=== PATIENT | male | born 1980 | race Caucasian/White ===

== ENCOUNTER 2016-10-14 21:20 | Emergency (ER) | payer BC ==
[2016-10-14 21:53] VITALS: TEMP 98.6; BMI 25.2
[2016-10-14] MEDS ORDERED: ONDANSETRON 4 MG/2 ML VIAL IVPUSH ONE (22:27)
[2016-10-14] MEDS ORDERED: morphine CARPU-JECT 4 MG/1 ML DISP.SYRIN IVPUSH ONE (22:27)
[2016-10-14] MEDS ORDERED: SODIUM CHLORIDE 1,000 ML IV STA (22:27)
[2016-10-14 22:33] LABS: URINE APPEARANCE CLEAR; URINE BILIRUBIN NEGATIVE (NEGATIVE); URINE BLOOD NEGATIVE (NEGATIVE); URINE COLOR LTYELLOW; URINE GLUCOSE (UA) NEGATIVE (NEGATIVE); URINE KETONE NEGATIVE (NEGATIVE); URINE LEUK ESTERASE NEGATIVE (NEGATIVE); URINE NITRITE NEGATIVE (NEGATIVE); URINE PROTEIN NEGATIVE (NEGATIVE); URINE UROBILINOGEN NEGATIVE E.U./dl (0.2-1.0)
[2016-10-14 22:43] LABS: BASOPHIL 0.8 % (0-2.0); EOSINOPHIL 2.2 % (0-4.5); MCH 29.7 pg (25.7-33.7); MCHC 33.9 g/dl (32.0-35.9); MEAN CELL VOLUME 87.6 fl (80-96); MEAN PLT VOLUME 9.6 fl (7.5-11.1); NEUTROPHILS 52.5 % (42.8-82.8); PLATELET COUNT 168 K/MM3 (134-434); RDW 13.2 % (11.9-15.9); WHITE BLOOD COUNT 5.8 K/mm3 (4.0-10.0)
[2016-10-14 23:08] LABS: CALCIUM 9.8 mg/dL (8.5-10.1); COCKROFT - GAULT 83.95; CREATININE 1.4 mg/dL (0.7-1.3)
[2016-10-14 23:09] LABS: BILIRUBIN,TOTAL 0.6 mg/dL (0.2-1.0)
--- NOTE | 2016-10-15 00:36 | PDOC ---
History of Present Illness - General Chief Complaint: Urinary Problem Stated Complaint: ABD PAIN/URINARY PROBLEM Time Seen by Provider: 10/14/16 22:13 History Source: Patient Exam Limitations: No Limitations - History of Present Illness Travel History: No Initial Comments: 10/15/16 00:31 36yo Male patient presents to ED c/o "bladder pain" for the past 3-4 weeks. Patient reports having a history of "bladder stones." He states symptoms began in Abdomen but he tolerated it, then traveled down to groin few days ago. He reports some discomfort when urinating. He denies fever, n/v/d, back pain, CP, diff breathing, or any other complaints. Patient states he was under the care of Urology few years ago when same symptoms occurred, but they wanted to put a "camera up my penis and I got scared and never went back." Timing/Duration: reports: getting worse Quality: reports: moderate Abdominal Pain Onset Location: reports: suprapubic Pain Radiation: reports: groin Activities at Onset: reports: no specific activity Treatment Prior to Arrive: worse with: analgesics, antacids, cold pack, heat, laxative, enema, other Aggravating Factors: worse with: None, Defecation, Eating, Emotional upset, Exertion, Hooks, Movement, Voiding, Change in position Alleviating Factors: worse with: None, Belching, Shallow Breathing, Defecation, Eating, Holding Breath, Passing Gas, Change in Position, Rest, Voiding, Vomiting Past History - Travel Traveled outside of the country in the last 30 days: No Close contact w/someone who was outside of country & ill: No - Past Medical History Allergies/Adverse Reactions: Allergies Allergy/AdvReac Type Severity Reaction Status Date / Time No Known Allergies Allergy Verified 10/14/16 21:51 Home Medications: Ambulatory Orders Baclofen 10 mg PO Q8H PRN #15 tablet 10/15/16 Oxycodone HCl/Acetaminophen [Endocet 5-325 Tablet] 1 each PO Q6H PRN #12 tablet MDD 4 TABS 10/15/16 - Immunization History Immunization Up to Date: Yes - Psycho/Social/Smoking Cessation Hx Suicidal Ideation: No Smoking History: Never smoked Have you smoked in the past 12 months: No Number of Cigarettes Smoked Daily: 1 Information on smoking cessation initiated: No Hx Alcohol Use: No Drug/Substance Use Hx: No Substance Use Type: None Abd/GI Specific PMHX - Complaint Specific PMHX Colitis: No Diverticulitis: No Gall Bladder Disease: No GERD: No Hepatitis: No Irritable Bowel Synd (IBS): No Pancreatitis: No GI Ulcer Disease: No Review of Systems - Review of Systems Able to Perform ROS?: Yes Is the patient limited [place] proficient: No Constitutional: No: Chills, Fever Respiratory: No: Cough, Shortness of Breath, Stridor, Wheezing Cardiac (ROS): No: Chest Pain, Edema, Lightheadedness, Palpitations, Syncope, Chest Tightness ABD/GI: Yes: Nausea, Other (Suprapubic pain). No: Abdominal Distended, Abd. Pain w/ defecation, Diarrhea, Poor Appetite, Poor Fluid Intake, Rectal Bleeding , Vomiting, Abdominal cramping : No: Burning, Dysuria, Frequency, Flank Pain, Hematuria, Pain, Testicular Swelling, Testicular Pain Musculoskeletal: No: Back Pain Integumentary: No: Bruising, Erythema, Rash Neurological: No: Headache, Seizure, Ataxia, Dizziness All Other Systems: Reviewed and Negative *Physical Exam - Vital Signs Last Vital Signs Temp Pulse Resp BP Pulse Ox 98.6 F 69 18 122/62 98 10/14/16 21:51 10/14/16 21:51 10/14/16 21:51 10/14/16 21:51 10/14/16 21:51 - Physical Exam General Appearance: Yes: Nourished, Appropriately Dressed. No: Apparent Distress, Mild Distress, Moderate Distress, Severe Distress Neck: positive: Trachea midline, Supple. negative: Decreased range of motion, Stridor, Lymphadenopathy (R), Lymphadenopathy (L) Respiratory/Chest: positive: Lungs Clear, Normal Breath Sounds. negative: Respiratory Distress, Accessory Muscle Use, Labored Respiration, Rapid RR, Stridor, Wheezing Cardiovascular: positive: Regular Rhythm, Regular Rate. negative: Edema, JVD, Murmur Gastrointestinal/Abdominal: positive: Soft, Decreased BS, Protuberent. negative : Tender, Distended, Guarding, Rebound, Tenderness Male Genitalia: positive: normal genitalia. negative: testicular tenderness, testicular mass, epididymus tender Musculoskeletal: positive: Normal Inspection. negative: CVA Tenderness, Vertebral Tenderness Extremity: positive: Normal Capillary Refill, Normal Inspection, Normal Range of Motion. 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, Fully Oriented, Alert, Normal Mood/ Affect, Normal Response, Motor Strength 10/27 ED Treatment Course - LABORATORY CBC & Chemistry Diagram: 10/14/16 22:35 10/14/16 22:35 - ADDITIONAL ORDERS Additional order review: Laboratory Results 10/14/16 10/14/16 22:35 22:15 Sodium 142 Potassium 4.3 Chloride 103 Carbon Dioxide 31 Anion Gap 8 BUN 23 H Creatinine 1.4 H Creat Clearance w eGFR 58.01 Random Glucose 89 Calcium 9.8 Total Bilirubin 0.6 AST 34 ALT 65 Alkaline Phosphatase 52 Total Protein 7.0 Albumin 4.0 Urine Color Ltyellow Urine Appearance Clear Urine pH 5.0 Ur Specific [place]vell 1.027 Urine Protein Negative Urine Glucose (UA) Negative Urine Ketones Negative Urine Blood Negative Urine Nitrite Negative Urine Bilirubin Negative Urine Urobilinogen Negative Ur Leukocyte Esterase Negative 10/14/16 22:35 RBC 4.86 MCV 87.6 MCHC 33.9 RDW 13.2 MPV 9.6 Neutrophils % 52.5 Lymphocytes % 33.3 Monocytes % 11.2 H Eosinophils % 2.2 Basophils % 0.8 - RADIOLOGY Radiology Studies Ordered: Category Date Time Status KUB (KID UR & BLAD) [RAD] Stat Radiology 10/14/16 22:26 Taken KIDNEY / RENAL US [US] Stat Ultrasound 10/14/16 22:26 Ordered PELVIC / BLADDER US [US] Stat Ultrasound 10/14/16 22:26 Ordered Progress Note - Progress Note Progress Note: 0330: PATIENT REQUESTING TO BE D/C'D BECAUSE HE HAS TO WORK IN 2 HOURS. PATIENT STATES HE WORKS FOR [employer], AND HE WILL CALL BACK FOR RESULTS. *DC/Admit/Observation/Transfer Diagnosis at time of Disposition: Abdominal pain Qualifiers: Abdominal location: unspecified location Qualified Code(s): R10.9 - Unspecified abdominal pain - Discharge Dispostion Disposition: HOME Condition at time of disposition: Stable Admit: No - Prescriptions Prescriptions: Baclofen 10 mg PO Q8H PRN #15 tablet PRN Reason: Pain Oxycodone HCl/Acetaminophen [Endocet 5-325 Tablet] 1 each PO Q6H PRN #12 tablet MDD 4 TABS PRN Reason: Severe Pain - Patient Instructions Printed Discharge Instructions: DI for Abdominal Pain-Adult Additional Instructions: FOLLOW UP WITH YOUR PRIMARY CARE PROVIDER NEEDED. CALL TO SCHEDULE APPOINTMENT FOR NEXT WEEK. TAKE MEDICATIONS PRESCRIBED. RETURN IF SYMPTOMS WORSEN OR ANY CONCERNS FOR FURTHER EVALUATION. Print Language: KAZAKH - Post Discharge Activity Work/School Note: Back to Work
[2016-10-15 02:35] VITALS: BP 119/67; PULSE 68
== END 2016-10-15 03:34 | disposition home or self-care (01) ==
LOC: JER 21:20
DX: R10.30 Lower abdominal pain, unspecified (principal)
CPT/HCPCS: 36415; 74000-TC; 76775-TC; 76856-TC; 80053; 81003; 85025; 87086; 99282-25